=== PATIENT | male | born 1980 | race Caucasian/White ===

== ENCOUNTER 2016-06-27 09:47 | Emergency (ER) | payer OTHER ==
[~2016-06-27] VITALS: Ht 177.8 cm; Wt 108.9 kg
[2016-06-27 11:44] VITALS: BP 126/74
== END 2016-06-27 11:44 | disposition home or self-care (01) ==
LOC: ED 09:47
DX: J01.90 Acute sinusitis, unspecified (principal); Z88.0 Allergy status to penicillin
CPT/HCPCS: J1885

== ENCOUNTER 2017-03-11 09:19 | Emergency (ER) | payer MEDICAID ==
[2017-03-11 09:32] VITALS: BP 125/88
== END 2017-03-11 11:46 | disposition home or self-care (01) ==
LOC: ED 09:19
DX: L50.9 Urticaria, unspecified (principal); T78.40XA Allergy, unspecified, initial encounter; Z88.0 Allergy status to penicillin; X58.XXXA Exposure to other specified factors, initial encounter
CPT/HCPCS: J7512; Q0163